=== PATIENT | male | born 1980 | race Caucasian/White ===

== ENCOUNTER 2018-06-11 21:11 | Emergency (ER) | payer SELFPAY ==
[2018-06-11] MEDS ORDERED: HYDROcodone/Acetaminophen 10/325 mg Tablet ONE (21:36)
[2018-06-11] MEDS ORDERED: Bacitracin Zinc 1 Packet ONE (22:07)
--- NOTE | 2018-06-11 22:52 | RAD ---
LEFT RIBS WITH PA CHEST 06/11/18 A PA film of the chest is submitted along with oblique views of the ribs. There is a nondisplaced fra cture of the left 7th rib posteriorly. No pneumothorax, pleural effusion, or acute pulmonary infiltra te was seen. The lungs are clear and the heart is normal in size. The mediastinum was unremarkable in appearance. IMPRESSION: Nondisplaced fracture of the left 7th rib. Code T POS: HOME
== END 2018-06-11 22:10 | disposition home or self-care (01) ==
LOC: BURERS 21:11 → EDBD 21:11 → BURERS 22:10
DX: S22.32XA Fracture of one rib, left side, initial encounter for closed fracture (principal); F17.210 Nicotine dependence, cigarettes, uncomplicated; W18.30XA Fall on same level, unspecified, initial encounter